=== PATIENT | female | born 1940 | race African-American/Black ===

== ENCOUNTER → 2022-01-30 | Outpatient (CLI) | payer SELFPAY ==
--- NOTE | 2022-01-30 08:01 | CDU_ITS ---
Reason For Study: Bruit Rt. Velocities/BP Lt. Velocities/BP Prox CCA 77.3/10.2 cm/sec. Prox CCA 106/13.9 cm/sec. Mid CCA 65.2/11.3 cm/sec. Mid CCA 56.9/9 cm/sec. Dist CCA 50.9/11.3 cm/sec. Dist CCA 51.9/11.4 cm/sec. Prox ICA 54.2/11.3 cm/sec. Prox ICA 43.5/13.3 cm/sec. Mid ICA 45.4/12.4 cm/sec. Mid ICA 59.7/20.1 cm/sec. Dist ICA 80.6/23.4 cm/sec. Dist ICA 97.1/23.4 cm/sec. Rt. ICA/CCA = 1.24. Lt. ICA/CCA = 1.71. Prox ECA 77.3/5.8 cm/sec. Prox ECA 53.2/5.3 cm/sec. Rt. Vert. 63/12.4 cm/sec. Lt. Vert. 55.3/16.8 cm/sec. Right Extracranial There is homogeneous, smooth atherosclerotic plaque noted in the right common carotid artery. There is intimal thickening but no significant atherosclerotic plaque noted in the right internal carotid artery. There is intimal thickening but no significant atherosclerotic plaque noted in the right external carotid artery. Antegrade flow is noted in the right vertebral artery. Right thyroid is abormal. Left Extracranial There is homogeneous, smooth atherosclerotic plaque noted in the left common carotid artery. There is intimal thickening but no significant atherosclerotic plaque noted in the left internal carotid artery. There is intimal thickening but no significant atherosclerotic plaque noted in the left external carotid artery. Antegrade flow is noted in the left vertebral artery. Left thyroid with structure noted that measures 1.4 x 1.4 cm. VL/Carotid Duplex Ultrasound Interpretation Summary Normal right extracranial internal carotid. Normal left extracranial internal carotid. Patent and antegrade vertebrals bilaterally. Incidental finding, abnormal thyroid with structure noted that measures 1.4 x 1 .4 cm on the left Ordering Physician: Alejo Priest Performed By: Nelsy Borges RVT
--- NOTE | 2022-01-30 08:01 | STE_ITS ---
Version 2 Reason For Study: CHEST PAIN Stress Results Protocol: Wilder Protocol Maximum Predicted HR: 139 bpm Target HR: 118 bpm % Maximum Predicted HR: 98 % DurationHeart Rate Stage (mm:ss) (bpm) BP Comment BASELINE 70 172/82 STAGE 1 3:00 136 220/90INCREASED SOB, FATIGUE, NO CHEST PAIN RECOVERY 81 152/74 Stress Duration: 3:00 mm:ss Maximum Stress HR: 136 bpm Baseline Echocardiogram Findings Left ventricular systolic function is normal. The estimated ejection fraction is 55 %. Normal systolic function. Normal right ventricle. Normal left atrium. Normal right atrium. Bubble study performed to assess for PFO. Bubble contrast study negative for right to left interatrial shunt. Normal mitral valve. Mild (1+) eccentric mitral valve insufficiency. Mild tricuspid valve insufficiency. Pulmonary artery systolic pressure is 30 mmHg. Normal tricuspid valve. Trisinus/trileaflet aortic valve. Normal pulmonic valve. Normal arch. Normal aortic root. The pulmonary artery is normal size. Normal inferior vena cava. No pericardial effusion. Stress Echo Wall motion Data Resting WM Intermediate WM Stress WM MMode/2D Measurements & Calculations LVIDd: 4.2 cm IVSd: 1.2 cm Ao root diam: 2.1 cm LVIDs: 2.1 cm LVPWd: 1.0 cm LA dimension: 3.8 cm RVDd: 3.7 cm FS: 48.5 % LAV(MOD-bp): 76.2 ml LVAd ap4: 30.1 cm2 LVAd ap2: 24.3 cm2 LAV(MOD-bp) Indexed: 40.5 ml/m2 LVLd ap4: 7.7 cm LVLd ap2: 7.3 cm LAV(MOD-sp2): 78.6 ml EDV(MOD-sp4): 96.4 ml EDV(MOD-sp2): 67.3 ml LAV(MOD-sp4): 67.8 ml EDV(sp4-el): 99.9 ml EDV(sp2-el): 68.2 ml LVAs ap4: 14.0 cm2 LVAs ap2: 11.4 cm2 LVLs ap4: 6.2 cm LVLs ap2: 6.0 cm ESV(MOD-sp4): 28.2 ml ESV(MOD-sp2): 19.8 ml ESV(sp4-el): 26.8 ml ESV(sp2-el): 18.4 ml EF(MOD-sp4): 70.7 % EF(MOD-sp2): 70.6 % EF(sp4-el): 73.2 % SV(MOD-sp4): 68.2 ml SV(sp4-el): 73.1 ml LA A4 area: 22.2 cm2 RA A4 area: 15.1 cm2 Time Measurements MV dec time: 0.18 sec Doppler Measurements & Calculations MV E max jeanmarie: 76.1 cm/sec Lat Peak E' Jeanmarie: 9.8 cm/sec Med Peak E' Jeanmarie: 8.9 cm/sec MV A max jeanmarie: 76.2 cm/sec E/E' lat: 7.8 E/E' med: 8.6 MV E/A: 1.00 Ao V2 max: 178.4 cm/sec LV V1 max: 151.5 cm/sec MV dec slope: 418.8 cm/sec2 Ao max P.7 mmHg LV V1 max P.2 mmHg Ao V2 mean: 117.0 cm/sec LV V1 mean P.6 mmHg Ao mean P.4 mmHg LV V1 mean: 100.9 cm/sec Ao V2 VTI: 41.4 cm LV V1 VTI: 33.4 cm PA V2 max: 150.7 cm/sec TR max jeanmarie: 250.6 cm/sec TR max P.4 mmHg ECHO/Stress Test Echo w/o Contrast Interpretation Summary Exercise stress echocardiogram 81-year-old lady with history of hypertension and here for an artaculousa l. Resting EKG demonstrates normal sinus rhythm with a rate of 61 bpm normal inter vals are noted resting blood pressure is 172/82 mmHg. The patient exercised according to the r egular Wilder protocol for total duration of 3 minutes. The maximum heart rate was 136 bpm which was 9 7% of max impacted heart rate the maximum workload was 4.6 metabolic equivalents. At rest there we re no ST or T wave changes noted to suggest ischemia and at peak exercise upsloping ST changes wer e noted with did not meet the criteria for ischemia. No clinical angina was noted patient did experi ence shortness of breath and fatigue. There was a hypertensive response to exercise Stress echocardiogram. The resting echocardiogram demonstrated preserved left ventricular systolic fun ction with an estimated ejection fraction of 55% no wall motion abnormalities were noted. The patient exercised according to the regular Wilder protocol and at peak exercise there was improvem ent in ejection fraction to approximately 65% no wall motion abnormalities were noted. No obvio us ischemia was present. Conclusion: Normal exercise stress echocardiogram at a low workload The global longitudinal strain is normal. The global longitudinal strain = -22 % (normal). Ordering Physician: Alejo Priest Referring Physician: Alejo Priest Performed By: Lorraine Wallace RDCS
[2022-01-30 08:15] LABS: Absolute Lymphocyte Count 1.97 X10^3/uL (0.83-4.51); Absolute Neutrophil Count 2.8 X10^3/uL (2.0-7.7); Basophil# 0.02 X10^3/uL; Basophil% 0.4 % (0-1); Eosinophil# 0.12 X10^3/uL; Eosinophils% 2.3 % (0-5); Hemoglobin 12.5 g/dL (12.0-15.0); Lymphocyte # 1.97 X10^3/ul (0.83-4.51); Mean Corp Hgb Conc 32.1 g/dL (32-36); Mean Corpuscular Hgb 27.4 pg (27.0-32.0); Mean Corpuscular Volume 85.3 fL (81-99); Mean Platelet Vol. 10.1 fl (6.2-12.0); Monocyte# 0.38 X10^3/uL; Monocyte% 7.1 % (0-10); NRBC Flagged by Analyzer 0 % (0-5); Neutrophil # 2.82 X10^3/uL (2.7-7.7); Platelet Count 288 K/mm3 (150-450); RBC Distribution Width CV 15.2 % (11.6-14.6); RBC Distribution Width SD 47.3 fl (35.1-43.9); Red Blood Count 4.57 M/mm3 (4.2-5.4); White Blood Count 5.3 K/mm3 (4.4-11.0)
--- NOTE | 2022-01-30 08:35 | RAD_ITS ---
STUDY: X-RAY CHEST REASON FOR EXAM: Female, 81 years old. CHEST PAIN TECHNIQUE: Frontal and lateral views of the chest. COMPARISON: None. FINDINGS: Within the right paratracheal region there is a round opacity with mass effect trachea with right to left midline shift. Normal size heart. Normal visualized pulmonary arteries. Normal visualized aortic arch and descending thoracic aorta. Normal visualized thoracic spine. Normal visualized ribs, clavicles, and shoulders. There is no demonstrated abnormality of the visualized soft tissue structures of the upper abdomen. RAD/Chest PA and Lateral IMPRESSION: Indeterminate rounded opacity within the right paratracheal region with mass effect on the trachea, may be secondary to a thyroid nodule or possible enlarged lymph node, recommend CT of the chest with contrast for further characterization. Electronically Signed: Alison Mcclure MD at 8:49 EDT ,
[2022-01-30 09:04] LABS: ALB/GLOB Ratio 0.9 RATIO (0.9-2.4); AST(SGOT) 21 U/L (15-37); Alanine Aminotransfer ALT/SGPT 26 U/L (13-56); Albumin, Serum 3.8 g/dL (3.2-5.0); Alkaline Phosphatase 128 U/L (45-117); Anion Gap 10 (5-15); BUN 16 mg/dL (7-18); Calcium,Total 9.6 mg/dL (8.5-10.1); Chloride 106 mmol/L (98-107); Cholesterol 191 mg/dL (200); Creatinine, Serum 1.07 mg/dL (0.55-1.02); EST Glomerular Filtration Rate 52 mL/min (>60); Est Glom Filt Rate - Afr Amer 63 mL/min (>60); Globulin 4.4 g/dL (2.2-4.2); Glucose 110 mg/dL (74-106); High Density Lipoprotein 68 mg/dL; Potassium 3.9 mmol/L (3.5-5.1); Protein, Total 8.2 g/dL (6.4-8.2); Sodium Level 141 mmol/L (136-145); Thyroid Stim Hormone (TSH) 0.37 uIU/mL (0.358-3.74); Triglycerides 75 mg/dL; Very Low Density Lipoprotein 15 mg/dL (5-40)
[2022-01-30 10:30] VITALS: BP 135/63; PULSE 65; RESP 14; TEMP 36.9; O2SAT 100; BMI 27.7
--- NOTE | 2022-01-30 10:40 | CT_ITS ---
INDICATION: CHEST PAIN EXAMINATION: CT CHEST WITHOUT CONTRAST - CT Chest W/O Contrast Injection TECHNIQUE: Helically acquired images were obtained of the chest. A radiation dose optimization technique was used for this scan. IV Contrast dosage and agent: None. COMPARISON: None. FINDINGS: LUNGS, PLEURA AND LARGE AIRWAYS: Mild bronchial prominence is seen, no evidence of endobronchial/endoluminal lesions is seen, otherwise the bronchovascular lung markings unremarkable, no evidence of focal lung opacification, no evidence of focal lung infiltrate or consolidation. No evidence of parenchymal lung mass or nodule is seen. No evidence of pneumothorax or pleural effusion. THYROID: Limits evaluation of the thyroid gland however there is a superior mediastinal mass that could represent a retrosternal extension of the thyroid gland seen this is exerting mass effect on the trachea best visualized on limited evaluation on axial series 3 image #1 measuring approximately 8.1 x 4.3 cm. HEART AND PERICARDIUM: Heart size is normal. No pericardial effusion. VESSELS: Thoracic aorta is not dilated. MEDIASTINUM AND DAVID: No mediastinal or hilar adenopathy. Esophagus is unremarkable. No hiatal hernia. UPPER ABDOMEN: No acute pathology. BONES: No suspicious lytic or blastic abnormality. CT/Limited Chest CT Cardiac Only IMPRESSION: Superior mediastinal soft tissue prominence suggestive of a prominent thyroid gland with mass effect and compression of the trachea would recommend further evaluation. No evidence of acute cardiopulmonary disease is seen. Electronically Signed: Matt Campa MD at 11:53 EDT ,
--- NOTE | 2022-01-30 17:09 | CA.SCORE ---
Calcium Scoring Coronary Calcium Scoring: High-resolution Computed Tomographic imaging of the chest was performed on [01/30/2022 ], with particular attention paid to the coronary arteries. Images from the examination were analyzed for the presence and extent of coronary artery calcification , using coronary calcium quantification software. The patient tolerated the procedure well and there were no complications. The results of the coronary calcification analysis are provided below. Findings Coronary Artery Left Main (LM): 0 Left Anterior Descending (LAD): 0 Left Circumflex (LCX): 0 Right Coronary Artery (RCA): 0 Total Agatston Score: 0 Calcium Scoring Interpretation: 0 No identifiable atherosclerotic plaque. Very low cardiovascular disease risk. <5% chance of presence coronary artery disease A Negative Examination 1-10 Minimal Plaque burden. Significant coronary artery disease very unlikely. 11-100 Mild plaque burden. Likely mild or minimal coronary atherosclerosis. 101-400 Moderate plaque burden Moderate non-obstructive coronary artery disease highly likely. Over 400 Extensive plaque burden. High likelihood of at least one significant coronary stenosis (>50% diameter) Calcium Score: 0 Negative Examination
== END | disposition home or self-care (01) ==
PROVIDERS: Referring Provider Internal Medicine Cardiovascular Disease; Visit Provider Internal Medicine Cardiovascular Disease
DX: R07.9 Chest pain, unspecified (principal); R09.89 Other specified symptoms and signs involving the circulatory and respiratory systems; E78.00 Pure hypercholesterolemia, unspecified
CPT/HCPCS: 36415; 71046; 75571; 76380; 80053; 80061; 84443; 85025; 93017; 93350; 93880